=== PATIENT | male | born 1970 | race Native Hawaiian/Other Pacific Islander ===

== ENCOUNTER 2017-12-14 08:53 | Emergency (ER) | payer BC ==
[~2017-12-14] VITALS: Ht 170.2 cm; Wt 93.0 kg
[~2017-12-14 08:53] MED LIST: METF500T PO
[2017-12-14 09:02] VITALS: TEMP 97.2
[2017-12-14 09:37] LABS: PLATELET COUNT 224 K/uL (142-355)
[2017-12-14 09:47] LABS: POTASSIUM 3.3 mmol/L (3.6-5.2)
[2017-12-14 13:00] VITALS: BP 140/82
== END 2017-12-14 13:20 | disposition home or self-care (01) ==
LOC: ED 08:53
DX: R19.7 Diarrhea, unspecified (principal); R10.9 Unspecified abdominal pain
CPT/HCPCS: 36415; 80053; 82150; 83690; 85027; 96360; 99284; Q9963

== ENCOUNTER 2021-02-23 10:10 | Outpatient (CLI) | payer OTHER | END 2021-02-23 22:36 | disposition home or self-care (01) | LOC: RAD 10:10 | PROVIDERS: ATTEND Nurse Practitioner Family | DX: Z03.89 Encounter for observation for other suspected diseases and conditions ruled out (principal) ==

== ENCOUNTER 2021-04-16 12:38 | Outpatient (CLI) | payer OTHER | END 2021-04-16 20:15 | disposition home or self-care (01) | LOC: RAD 12:38 | PROVIDERS: ATTEND Family Medicine | DX: M79.645 Pain in left finger(s) (principal) ==

== ENCOUNTER 2022-02-19 09:56 | Outpatient (CLI) | payer OTHER | END 2022-02-19 19:10 | disposition home or self-care (01) | LOC: CT 09:56 | PROVIDERS: ATTEND Nurse Practitioner Family | DX: R10.11 Right upper quadrant pain (principal) | CPT/HCPCS: 36415; 82565; 84520; Q9963 ==